=== PATIENT | female | born 1995 | race Caucasian/White ===

== ENCOUNTER → 2021-09-18 00:19 | Outpatient (CLI) | payer OTHER, SELFPAY ==
[2021-09-18 18:14] LABS: SARS-CoV-2 RNA PCR Negative
== END ==
PROVIDERS: Visit Provider Student in an Organized Health Care Education/Training Program
DX: Z01.812 Encounter for preprocedural laboratory examination (principal); Z20.822 Contact with and (suspected) exposure to COVID-19
CPT/HCPCS: C9803; U0003; U0005

== ENCOUNTER 2021-09-22 01:27 | Day surgery (SDC) | payer OTHER, SELFPAY ==
--- NOTE | 2021-09-14 10:45 | SUR.PREOP ---
Report to the Outpatient Waiting Room, entrance under the green pavilion located off [facility], at time __1100__ on date __09/22/21___. OR Time: __1299__. - You and your visitor will be asked a series of questions to screen for COVID 19 for your protection. - A mask is required within the hospital. - Only one visitor is allowed at this time. Patient visitors will be guided where to wait when not with patient. Preoperative COVID Testing Requirements: No COVID Test needed if: (proof is required; if not received patient will have Rapid Test prior to entry) - Patient has received COVID Vaccine at least 14 days prior to procedure date or - Patient has positive COVID test result within last 90 days of surgery date. COVID Test needed if above criteria is not met If not COVID vaccinated a COVID test must be conducted within 72 hours of surgery and patient is asked to isolate self from time of testing until procedure. You will go to the [facility] for your COVID testing. The [facility] Testing site is located at the corner of [address] [facility]. You will only be called if COVID results are positive and your surgeon may reschedule your elective surgery date. Patients may have clear liquids (water, carbonated beverages, clear teas, apple juice) until 3 hours prior to surgery with a maximum of 20 ounces. - No food from midnight until time of surgery - Infants may have breast milk until 4 hours before surgery, formula 6 hours prior to surgery. - Children will be allowed to drink immediately following surgery. If applicable, please bring a bottle or sippy cup to assist with drinking. Juice, water, soda, and popsicles are readily available. For infants on formula, please bring formula the day of surgery. Pacifiers are allowed. Take the following medications with a SIP of water the morning of surgery: dextroamphetamine-amphetamine____ Medications to discontinue per physician n/a Date to take last dose____n/a Please no make-up, nail armenian, hairspray, perfume, deodorant, or body powder the day of surgery. No jewelry (including any body piercings) or valuables the day of surgery, leave them at home. Please take a shower or bath the night before, or the morning of, surgery with an antibacterial soap. Wear comfortable, loose fitting clothing. Children are encouraged to wear pajamas. - Jewelry must be removed prior to entering the operating room. Rings and piercings that are not removed may be cut off. - The hospital will not accept responsibility for valuables. - Please leave all valuables, including medications, at home the day of surgery. If you are going home after surgery, a licensed driver manager must drive you home. - NO public transportation without another adult. - We recommend that an adult stay with you for 24 hours following discharge. - We also recommend that you do not drive, make important decision, drink alcoholic beverages, or take any drugs that were not prescribed by your health care provider for at least 24 hours after your discharge time. For Pediatric surgeries, we recommend two adults accompany the child home (only one inside the building at this time). Follow any additional instructions given to you from your surgeon. Telephone instructions given to ___patient and asked if any additional questions and then verbalized understanding. Patient advised to call surgeon office or pre surgery nurse liaison [phone] if any additional questions.
[2021-09-18 13:32] LABS: Hematocrit 39.4 % (37.0-47.0); Hemoglobin 13.6 g/dL (12.0-15.0); Mean Corpuscular HGB Conc 34.5 g/dl (32-36); Mean Corpuscular Hemoglobin 30.8 pg (26-34); Mean Corpuscular Volume 89.1 fl (80-100); Mean Platelet Volume 10.9 fl (7.4-10.4); Platelet Count Result 184 k/mm3 (150-375); Red Blood Count 4.42 M/mm3 (4.2-5.4); Red Cell Distribution Width 11.9 % (11.5-14.5); White Blood Count 9.7 K/mm3 (4.5-10.0)
--- NOTE | 2021-09-21 15:33 | PM.IMHP ---
H&P: HPI History of Present Illness Date/Time: 09/21/21 15:33 Chief Complaint: ovarian cyst pelvic pain Narrative: 26 yo G0 who presents for laparoscopic right ovarian cystectomy and possible right oophorectomy. Pt has a long history of ovarian cysts. She was previously on continuous OCPs but self-stopped due to not liking how she felt on the pills. Pt initially presented on 06/01/21 for pelvic US to evaluate pelvic pain. Pt noted to have a R sided complex ovarian cyst that takes up most of the ovarian mass. pt had follow up US in 3 months which showed persistence of the cyst. Pt reported continued pain and desires surgical management. Review of Systems Cardiovascular: Cardiovascular: Denies chest pain, Denies leg edema, Denies palpitations, Denies dyspnea and Denies dyspnea on exertion Respiratory: Respiratory: Denies cough, Denies dyspnea and Denies dyspnea on exertion Gastrointestinal: Gastrointestinal: Denies abdominal pain, Denies constipation, Denies diarrhea, Denies nausea and Denies vomiting Genitourinary: Genitourinary: Denies hematuria, Denies urinary frequency, Denies dysuria, Denies pelvic pain, Denies urinary incontinence and Denies vaginal discharge Neurologic: Reports system reviewed and no additional complaints, except as documented Psychiatric: Psychiatric: Reports no additional psychiatric complaints Endocrine: Endocrine: Denies palpitations PMFSH Social History Social History Smoking status: Never smoker Substance use: current Substance use type: marijuana Other substance usage details: daily use Meds Home Medications and Allergies Home Medications Medication Instructions Recorded Confirmed Type dextroamphetamine-amphetamine 20 mg PO BID 09/14/21 09/14/21 History Allergies Allergy/AdvReac Type Severity Reaction Status Date / Time ondansetron [From Zofran] AdvReac Severe Other Verified 09/14/21 10:27 bee venom protein (honey bee) AdvReac Unknown Swelling Verified 09/14/21 10:28 [bees] Exam Const: General: no acute distress Eyes: EOM: EOMs intact bilaterally Neck: Neck: supple Thyroid: thyroid normal Chest: Breast/axilla inspection: normal inspection of the breasts Breast/axilla palpation: normal palpation of the breasts, normal palpation of the axillae and no axillary lymphadenopathy Resp: Effort & Inspection: normal respiratory effort Auscultation: clear to auscultation bilaterally Cardio: Rate: regular rate Rhythm: regular rhythm GI: Inspection: non-distended GI Palp: Yes Soft to palpation, No Tenderness to palpation present (GI) and No Guarding due to palpation present (GI) Auscultation: normal bowel sounds : General: No bladder normal to palpation External Female Exam: normal external appearance Speculum Exam - Vagina: normal vaginal discharge and No vaginal bleeding Speculum Exam - Cervix: nontender Bimanual exam- vagina & uterus: No bladder normal to palpation and No Cervical tenderness present OB/external & speculum: No vaginal bleeding Skin: General skin exam: normal color and no rashes or lesions noted Neuro: Cognition (Neuro): normal cognition Speech: normal speech Extrem: General: normal to inspection and no edema Psych: Mental Status: mental status grossly normal Affect: normal affect Assessment and Plan Assessment and plan (1) Pelvic pain: Code(s): R10.2 - Pelvic and perineal pain Status: Acute Assessment and Plan: pt reports long history of elías-menstrual and chronic pelvic pain (2) Ovarian cyst: Code(s): N83.209 - Unspecified ovarian cyst, unspecified side Status: Acute Assessment and Plan: Pt noted to have complex R ovarian cyst on imaging for pelvic pain pt discontinued medical management cyst composes most of the R ovarian mass follow up US in 3 mo showed persistent cyst suspicious for endometrioma will perform laparoscopic R ovarian cystectomy with possible oophorectomy
[2021-09-22] VITALS (9 sets, daily range): BP systolic 111–127; BP diastolic 69–92; PULSE 52–95; RESP 14–24; TEMP 36.2–36.9; O2SAT 99–100
--- NOTE | 2021-09-22 07:58 | WPDHPUPDATE1 ---
History and Physical Update Update Date/Time: 09/22/21 07:58 History and Physical has been reviewed, including an updated exam of the patient. There are NO changes in the patient's condition. Risks, benefits, and alternatives have been discussed and questions answered. Patient agrees to proceed with procedure.
--- NOTE | 2021-09-22 10:43 | P.PNAN_ITS ---
Anes - Initial Pre Proc Eval Procedure: Operation Date: 09/22/21 12:00 Proposed Procedures p Laparoscopic Right Ovarian Cystectomy with Possible Right Salpingo Oophorectomy - Williams Sawant MD Date/Time: 09/22/21 10:43 Surgeon: Williams Sawant MD Pre Op Diagnosis: right ovarian cyst pain Patient Data Age: 26 Gender: F Height: 1.73 m Weight: Allergies Allergy/AdvReac Type Severity Reaction Status Date / Time ondansetron [From Zofran] AdvReac Severe Other Verified 09/14/21 10:27 bee venom protein (honey bee) AdvReac Unknown Swelling Verified 09/14/21 10:28 [bees] Home Medications Medication Instructions Recorded Confirmed Type dextroamphetamine-amphetamine 20 mg PO BID 09/14/21 09/14/21 History Patient hx anesthesia problems: post op nausea/vomiting Family hx anesthesia problems: none Results Review: All pre-operative results and documents have been reviewed as part of the pre-operative evaluation. [facility] Past Medical History Medical History Anxiety Social History Social History Smoking status: Never smoker Substance use: current Substance use type: marijuana Other substance usage details: daily use Anes - Eval Final PreProcedure Day of Procedure 09/22/21 10:43 Patient weight: overweight Heart: regular rate and rhythm Lungs: clear to auscultation Airway: Mallampati scale class II and special considerations (new dental implants incisors) Neurological: alert and oriented Last oral intake: >/= 8 hours ASA classification: III Emergent: no Anesthetic plan: proceed Anesthesia type and monitoring: general ETT and standard monitoring Results Review: All pre-operative results and documents have been reviewed as part of the pre-operative evaluation. Informed Consent: The patient's anesthetic plan and its attendant risks and samy efits were discussed with the patient/family/POA. Questions were solicited and answers provided to the satisfaction of the patient/family/POA.
[2021-09-22] MEDS: ACETAMINOPHEN 500 MG TABLET 1000 MG PO (10:45)
[2021-09-22] MEDS: SCOPOLAMINE 1.5 MG PATCH TRANSDERM (10:51)
[2021-09-22] MEDS: KETOROLAC 15 MG/ML VIAL (*BKC) IV PUSH (10:58)
[2021-09-22] MEDS: LACTATED RINGERS 1,000 ML 30 ML IV CONT ×2 (10:59→13:35)
[2021-09-22] MEDS: LIDO 1%/EPINEPHRINE 1:100,000 50 ML VIAL 15 ML INFILTRATE (12:17)
--- NOTE | 2021-09-22 12:58 | W.PM.PROC2 ---
Procedure Note - Detailed Date of Procedure 09/22/21 Pre-op Diagnosis right ovarian cyst pain Post-op Diagnosis same Procedure Performed Laparoscopic right ovarian cystectomy Surgeon Williams Sawant MD Anesthesia general Indications chronic pelvic pain, right ovarian complex cyst Description of Procedure The patient was taken to the operating room where general endotracheal anesthesia was undertaken and found to be adequate. She was then prepped and draped in the dorsal lithotomy position and placed in adjustable stirrups. A pre-operative team brief and a time out were completed. A catheter was placed to drain the bladder. Retractors were placed placed in the vagina and the cervix was identified. An acorn uterine manipulator was placed. Attention was then turned to the abdomen which was anesthetized umbilically with injected anesthestic. A 5mm mm skin incision was made in the umbilicus. A 5 mm optical trocar was then placed with direct camera visualization of the abdominal layers during placement. The trocar stylet was removed and the camera was used to verify intra-abdominal placement. CO2 insufflation was then connected and resumed. The pelvis was inspected. A left lower quadrant 5 mm port was placed, in addition to a right lower quadrant 5 port in the standard fashion after using local anesthetic. The pelvis was then surveyed and noted an enlarged R ovary. The ovarian capsule was incised with monopolar scissors. The ovarian capsule was then dissected free from the underlying cyst capsule. The cyst was punctured with an aspiration need which returned clear fluid. The deflated ovarian capsule was then grasped with an atraumatic bowel grasper. The ovarian capsule was then grasped with a [place] grasper. The cyst was then able to be removed from the ovary intact with opposite traction. The ovarian cyst was noted to have been lacerated during attempted extraction. The cyst was noted to be filled with hair and adipose tissue suggestive of a teratoma. The umbilicus incision was then converted to a 10mm incision. An endopouch was then introduced and the cyst was placed in the bag. The cyst was removed in the pouch through the umbilicus port site. The ovarian bed was then irrigated. The ovary was found to be hemostatic. The surgical field was thoroughly irrigated using normal saline. All surgical beds were noted to be hemostatic. A Manny-Gretchen was then used to closed the umbilical fascial incision under direct visualization. The abdomen was relieved of all CO2 gas. All remaining trocars were removed from the abdomen. Sponge, lap and needle counts were correct. All skin incisions were closed with 4-0 Vicryl suture subcuticularly. The uterine manipulator was removed from the uterus. Hemostasis of the cervix was obtained with silver nitrate. The urinary catheter was removed. The patient was taken out of dorsal lithotomy position. Anesthesia was reversed. The patient was taken to the PACU. Estimated Blood Loss 50 Urine Output 50 Drains No Packing No Pathology yes (Right ovarian cyst and fluid) Complications No immediate complications Condition stable Disposition PACU
[2021-09-22] MEDS: fentaNYL CITRATE INJ (*CRX) 100 MCG/2 ML VIAL 25 MCG IV PUSH ×4 (13:19→13:54)
[2021-09-22] MEDS: oxyCODONE HCL (*CRX) 5 MG TAB IR PO (14:28)
== END 2021-09-22 15:01 | disposition home or self-care (01) ==
PROVIDERS: Visit Provider Student in an Organized Health Care Education/Training Program
PROC: (CPT 49320; principal; 2021-09-22 12:00)
DX: D27.0 Benign neoplasm of right ovary (principal); R10.2 Pelvic and perineal pain; F12.90 Cannabis use, unspecified, uncomplicated
CPT/HCPCS: 58662; 85027; 86850; 86900; 86901; 88305; A9270; C9803; J1100; J1885; J2250; J2405; J2704; J2710; J3010; J7030; J7120; U0003; U0005

== ENCOUNTER 2022-04-14 09:16 | Outpatient (RCR) | payer OTHER, SELFPAY ==
[2022-04-14] MEDS: RHO(D) IMMUNE GLOBULIN 300 MCG/2 ML SYRINGE IM (14:23)
== END 2022-04-14 10:00 | disposition home or self-care (01) ==
LOC: ANHLAB 09:16
PROVIDERS: Visit Provider Obstetrics & Gynecology
DX: Z29.13 Encounter for prophylactic Rho(D) immune globulin (principal)
CPT/HCPCS: 36415; 85461; 90384; 96372; J2790

== ENCOUNTER 2022-06-27 14:53 | Outpatient (RCR) | payer OTHER, SELFPAY ==
--- NOTE | ~2022-06-27 | US_ITS ---
EXAMINATION: US OB limited DATE: 06/27/2022 17:15 INDICATION: TEHAN TECHNIQUE: Real-time ultrasound of the pelvis was performed. COMPARISON: None. FINDINGS: There is a single living fetus in vertex presentation, longitudinal lie. The placenta is posterior. heart rate is 165 beats per minute (bpm). The amniotic fluid index is [23.1 cm, which is elevat ed (5th to 95th percentile range is 7.2 to 22.6 cm).] IMPRESSION: 1. Single living fetus in [vertex presentation.] 2. Posterior placenta. 3. Elevated ETHAN of 23.1 cm (22.6 cm represents the 95th percentile). Reviewed, dictated and finalized at location K.
[2022-06-27 16:20] VITALS: BP 128/77; PULSE 80
--- NOTE | 2022-06-27 18:31 | PC.NURSE ---
Dr Orona notified of vaiable decels and ETHAN. OK to dc home with labor precautions.
== END 2022-07-27 10:13 | disposition home or self-care (01) ==
LOC: ANHOBOP 14:53
PROVIDERS: Visit Provider Obstetrics & Gynecology
DX: O48.0 Post-term pregnancy (principal); O43.93 Unspecified placental disorder, third trimester; Z3A.40 40 weeks gestation of pregnancy
CPT/HCPCS: 59025; 76815

== ENCOUNTER 2022-06-30 10:44 | Inpatient (IN) | payer OTHER, SELFPAY ==
[2022-06-30] VITALS (158 sets, daily range): BP systolic 93–158; BP diastolic 56–108; PULSE 25–133; RESP 16–17; TEMP 36.4–36.8; O2SAT 84–100; BMI 31.5
[2022-06-30] MEDS: LACTATED RINGERS 1,000 ML 125 ML IV CONT ×2 (12:23→21:09)
[2022-06-30] MEDS: AMPICILLIN 2 GM/NS 100 ML 2 GM/100 ML BAG IVPB (12:24)
[2022-06-30 12:52] LABS: Basophils Absolute Auto 0.1 K/mm3 (0.0-0.1); Basophils Percent Auto 0.4 % (0.2-1.2); Eosinophils Percent Auto 0.2 % (0-4.4); Hematocrit 37.3 % (37.0-47.0); Hemoglobin 12.9 g/dL (12.0-15.0); Immature Granulocyte Absolute 0.09 K/mm3 (0.00-0.031); Immature Granulocyte Percent A 0.7 % (0-0.5); Lymphocytes Absolute Auto 1.46 K/mm3 (0.9-3.2); Lymphocytes Percent Auto 11.7 % (18.3-44.2); Mean Corpuscular HGB Conc 34.6 g/dl (32-36); Mean Corpuscular Volume 86.7 fl (80-100); Mean Platelet Volume 12.6 fl (7.4-10.4); Monocytes Absolute Auto 0.9 K/mm3 (0.1-0.6); Monocytes Percent Auto 6.8 % (2.6-8.5); Neutrophils Percent Auto 80.2 % (45.5-73.1); Platelet Count Result 141 k/mm3 (150-375); Red Cell Distribution Width 12.5 % (11.5-14.5); White Blood Count 12.4 K/mm3 (4.5-10.0)
--- NOTE | 2022-06-30 13:34 | P.PNAN_ITS ---
Anes - Eval Final PreProcedure Day of Procedure 06/30/22 13:34 Results Review: All pre-operative results and documents have been reviewed as part of the pre- operative evaluation. Informed Consent: The patient's anesthetic plan and its attendant risks and benefits were discussed with the patient/family/POA. Questions were solicited and answers provided to the satisfaction of the patient/family/POA.
--- NOTE | 2022-06-30 13:35 | WPDANESEPPF ---
Anes - Initial Pre Proc Eval Procedure: Labor Epidural Date/Time: 06/30/22 13:35 Surgeon: Cruz Orona MD Pre Op Diagnosis: Labor pain Pre Op Diagnosis: Labor Patient Data Age: 27 Gender: F Height: Weight: Last Vital Signs Pulse 85 06/30/22 13:30 BP 140/90 06/30/22 13:30 Pulse Ox 100 06/30/22 13:34 Allergies Allergy/AdvReac Type Severity Reaction Status Date / Time ondansetron [From Zofran] AdvReac Severe Other Verified 09/22/21 11:17 bee venom protein (honey bee) AdvReac Unknown Swelling Verified 09/22/21 11:17 [bees] Home Medications Medication Instructions Recorded Confirmed Type dextroamphetamine-amphetamine 10 mg PO DAILY 06/09/22 06/27/22 History Laboratory Tests 06/30/22 06/30/22 12:05 12:05 WBC 12.4 K/mm3 H K/mm3 (4.5-10.0) RBC 4.30 M/mm3 M/mm3 (4.2-5.4) Hgb 12.9 g/dL g/dL (12.0-15.0) Hct 37.3 % % (37.0-47.0) MCV 86.7 fl fl (80-100) MCH 30.0 pg pg (26-34) MCHC 34.6 g/dl g/dl (32-36) RDW 12.5 % % (11.5-14.5) Plt Count 141 k/mm3 L k/mm3 (150-375) MPV 12.6 fl H fl (7.4-10.4) Immature Gran % (Auto) 0.7 % H % (0-0.5) Neut % (Auto) 80.2 % H % (45.5-73.1) Lymph % (Auto) 11.7 % L % (18.3-44.2) Platte % (Auto) 6.8 % % (2.6-8.5) Eos % (Auto) 0.2 % % (0-4.4) Baso % (Auto) 0.4 % % (0.2-1.2) Lymph # (Auto) 1.46 K/mm3 K/mm3 (0.9-3.2) Platte # (Auto) 0.9 K/mm3 H K/mm3 (0.1-0.6) Eos # (Auto) 0.0 K/mm3 K/mm3 (0-0.3) Baso # (Auto) 0.1 K/mm3 K/mm3 (0.0-0.1) Abs Immat Gran (auto) 0.09 K/mm3 H K/mm3 (0.00-0.031) Absolute Neuts (auto) 10.0 K/mm3 H K/mm3 (1.3-6.7) Absolute Nucleated RBC 0.0 K/mm3 K/mm3 (0.0-0.012) Nucleated RBC % 0.0 % % (0.0-0.2) RPR Pending Patient hx anesthesia problems: none Family hx anesthesia problems: none Results Review: All pre-operative results and documents have been reviewed as part of the pre-operative evaluation. [facility] Past Medical History Medical History Anxiety Social History Social History Smoking status: Never smoker Substance use: never Substance use type: marijuana Other substance usage details: daily use Spiritual care concerns: No Anes - Eval Final PreProcedure Day of Procedure 06/30/22 13:35 Results Review: All pre-operative results and documents have been reviewed as part of the pre-operative evaluation. Informed Consent: The patient's anesthetic plan and its attendant risks and benefits were discussed with the patient/family/POA. Questions were solicited and answers provided to the satisfaction of the patient/family/POA.
--- NOTE | 2022-06-30 14:07 | LDADM ---
This patient, Janice Gan, was admitted to Labor/Delivery/Recovery 105 on 06/30/22 at 10:44. Plans for labor, pain management and were discussed with patient. Patient/family oriented to hospital policies and general routines including ID bracelet, bed and alarms, visiting hours, pain management, procedures, bathroom and other care routines, personal items, smoking policy, room service/diet and guest tray routines, security routines, and visiting hours. Patient/Family are encouraged to report perceived risks to care and to ask questions if they do not understand what they are told or what they should do. See OBIX for further documentation.
[2022-06-30] MEDS: AMPICILLIN 1 GM/NS 50 ML 1 GM/50 ML BAG IVPB ×2 (16:26→20:30)
--- NOTE | 2022-06-30 16:40 | PM.IMHP ---
H&P: HPI History of Present Illness Date/Time: 06/30/22 16:40 Chief Complaint: Contractions. Narrative: 27 y/o G1 at 40 2/7 weeks gestation with contractions worsening at 0700 today. GBS pos. Labor has been diagnosed. She is now comfortable with epidural. Review of Systems Review of Systems: All systems reviewed & are unremarkable except as noted in HPI and below PMFSH Past Medical History Medical History (Updated 06/30/22 @ 16:46 by Cruz Orona MD) ADHD (attention deficit hyperactivity disorder) Anxiety Surgical History Surgical History History of cholecystectomy History of ovarian cystectomy Social History Social History Smoking status: Never smoker Substance use: never Substance use type: marijuana Other substance usage details: daily use Spiritual care concerns: No Meds Home Medications and Allergies Home Medications Medication Instructions Recorded Confirmed Type dextroamphetamine-amphetamine 10 mg PO DAILY 06/09/22 06/27/22 History Allergies Allergy/AdvReac Type Severity Reaction Status Date / Time ondansetron [From Zofran] AdvReac Severe Other Verified 09/22/21 11:17 bee venom protein (honey bee) AdvReac Unknown Swelling Verified 09/22/21 11:17 [bees] Vital Signs Vital Signs - 24 hr 06/30/22 12:31 06/30/22 12:46 06/30/22 13:01 Pulse Rate 101 H 69 73 Blood Pressure 151/87 H 158/82 H 143/95 H Pulse Oximetry Oxygen Delivery 06/30/22 13:04 06/30/22 13:05 06/30/22 13:09 Pulse Rate 87 Blood Pressure 144/108 H Pulse Oximetry 100 100 Oxygen Delivery 06/30/22 13:14 06/30/22 13:19 06/30/22 13:24 Pulse Rate 72 Blood Pressure 139/80 Pulse Oximetry 100 100 100 Oxygen Delivery 06/30/22 13:28 06/30/22 13:29 06/30/22 13:30 Pulse Rate 70 85 85 Blood Pressure 135/83 145/84 H 140/90 Pulse Oximetry 100 Oxygen Delivery 06/30/22 13:34 06/30/22 13:37 06/30/22 13:39 Pulse Rate 91 77 66 Blood Pressure 142/95 H 137/91 H 132/83 Pulse Oximetry 100 100 Oxygen Delivery 06/30/22 13:40 06/30/22 13:43 06/30/22 13:44 Pulse Rate 67 67 75 Blood Pressure 127/90 126/80 136/76 Pulse Oximetry 100 Oxygen Delivery 06/30/22 13:47 06/30/22 13:48 06/30/22 13:49 Pulse Rate 66 62 Blood Pressure 108/71 109/72 Pulse Oximetry 100 Oxygen Delivery 06/30/22 13:50 06/30/22 13:53 06/30/22 13:54 Pulse Rate 63 70 63 Blood Pressure 122/81 116/76 105/68 Pulse Oximetry 100 Oxygen Delivery 06/30/22 13:56 06/30/22 13:59 06/30/22 14:04 Pulse Rate 66 81 Blood Pressure 105/66 96/81 L Pulse Oximetry 99 99 Oxygen Delivery 06/30/22 14:09 06/30/22 14:14 06/30/22 14:15 Pulse Rate 65 Blood Pressure 110/66 Pulse Oximetry 100 95 Oxygen Delivery 06/30/22 14:19 06/30/22 14:24 06/30/22 14:29 Pulse Rate Blood Pressure Pulse Oximetry 97 99 97 Oxygen Delivery 06/30/22 14:31 06/30/22 14:34 06/30/22 14:36 Pulse Rate 63 Blood Pressure 105/67 Pulse Oximetry 100 98 Oxygen Delivery 06/30/22 14:38 06/30/22 14:39 06/30/22 14:39 Pulse Rate Blood Pressure Pulse Oximetry 100 84 L 88 L Oxygen Delivery 06/30/22 14:40 06/30/22 14:41 06/30/22 15:00 Pulse Rate 65 Blood Pressure 125/88 Pulse Oximetry 96 100 Oxygen Delivery 06/30/22 15:16 06/30/22 15:46 06/30/22 16:00 Pulse Rate 65 77 88 Blood Pressure 129/88 119/76 127/82 Pulse Oximetry Oxygen Delivery 06/30/22 16:16 06/30/22 16:31 06/30/22 14:06 Pulse Rate 68 98 Blood Pressure 124/80 119/82 Pulse Oximetry Oxygen Delivery Room Air Exam Const: Orientation/consciousness: patient oriented x3 Other: Well-developed, well-nourished female in no acute distress. Neck: Thyroid: thyroid normal Lymphatic: no lymphadenopathy noted (in neck, axilla or inguinal nodes) Resp
[2022-06-30] MEDS: SODIUM CHLORIDE 0.9% IV 300 ML 600 ML I-UTERINE (22:09)
[2022-06-30] MEDS: SODIUM CHLORIDE 0.9% IV 1,000 ML 150 ML I-UTERINE (22:43)
[2022-07-01] VITALS (21 sets, daily range): BP systolic 103–138; BP diastolic 61–97; PULSE 55–155; RESP 16–18; TEMP 36.3–36.6; O2SAT 97–100
[2022-07-01] MEDS: OXYTOCIN 30 UNITS/NS 500 ML 30 UNITS/500 ML BAG 999 UNITS IV CONT (01:09)
--- NOTE | 2022-07-01 01:26 | PM.OBPRVD ---
OB - Delivery Note Procedure Delivery date: 07/01/22 Procedure: Delivery augmentation: Rupture of Membranes Delivery monitor: External FHT, External Uterine and Internal Uterine Route of delivery: Laceration Description: Vaginal Delivery repair: vicryl (3-0) Specimen: Yes (cord blood) Quantitative Blood Loss (ml): 180 Anesthesia type: Epidural Disposition: PACU Complications: None Narrative: 27 y/o G1 at 40 3/7 weeks gestation who presented to the hospital with complaint of contractions. Labor was diagnosed. Ampicillin was administered IV for GBS colonization. She received an epidural for pain control. Amniotomy was performed with return of clear fluid. Her labor progressed and her cervix dilated completely. She pushed with good effort and delivered the infant's head to the perineum, followed by the body. The nose and mouth were bulb suctioned. After a delay, the cord was clamped and cut. The was handed off the field. Cord blood was collected. The placenta delivered spontaneously and was grossly normal in appearance. The usual 3 vessel cord was noted. A distal vaginal laceration was sustained. This was reapproximated using 3 0 Vicryl in interrupted figure of eight fashion. Excellent hemostasis resulted as did excellent reapproximation of the normal anatomy. Needle and instrument counts were correct. The patient was taken to recovery room in stable condition. The went to the nursery in stable condition. I was present and scrubbed for the entire delivery. [place] [facility] Date of : 07/01/22 Time of : 01:05 Weeks of gestation at delivery: 40 gender: Male Weight (pounds): 7 Weight (ounces): 3 presentation: vertex position: Right Occiput Anterior Placenta delivery description: Spontaneous and Normal Configuration Cord Vessel Description: 3 Vessels and Delayed Cord Clamping score one minute: 9 score five minutes: 9
--- NOTE | 2022-07-01 01:30 | PM.OBDSVD ---
DS: Admitting Diagnosis Discharge Date 07/02/22 Admitting Diagnosis IUP at 40 3/7 weeks GBS colonization Labor DS: Discharge Diagnosis Discharge Diagnosis (1) (normal spontaneous vaginal delivery): Code(s): O80 - Encounter for full-term uncomplicated delivery Status: Acute (2) GBS (group B Streptococcus carrier), +RV culture, currently : Code(s): O99.820 - Streptococcus B carrier state complicating Status: Acute OB - DS: Summary OB Procedures : None OB Procedures Intrapartum: Spontaneous Vag Delivery OB Procedures: : None Time Spent with Patient Time attestation: Total time spent providing and/or coordinating discharge services: DS: Data Data Completed and Pending Labs on day of discharge: Labs from last 24 hours 06/30/22 06/30/22 06/30/22 12:05 12:05 12:05 WBC 12.4 H RBC 4.30 Hgb 12.9 Hct 37.3 MCV 86.7 MCH 30.0 MCHC 34.6 RDW 12.5 Plt Count 141 L MPV 12.6 H Immature Gran % (Auto) 0.7 H Neut % (Auto) 80.2 H Lymph % (Auto) 11.7 L Ector % (Auto) 6.8 Eos % (Auto) 0.2 Baso % (Auto) 0.4 Lymph # (Auto) 1.46 Ector # (Auto) 0.9 H Eos # (Auto) 0.0 Baso # (Auto) 0.1 Abs Immat Gran (auto) 0.09 H Absolute Neuts (auto) 10.0 H Absolute Nucleated RBC 0.0 Nucleated RBC % 0.0 RPR Pending Blood Type O Negative Antibody Screen Positive Antibody Identification Passive Due to RH Imm Glob Antigen Identification TNP ALEXIA, IgG Interpret Not Performed ALEXIA, Poly Interpret Negative ALEXIA, Complement Interp Not Performed Discharge Plan Discharge Attending physician on discharge: Cruz Orona Discharging Clinician: Cruz Orona Patient Disposition: Home, Self-Care Activity: pelvic rest Diet: regular Discharge Instructions: Education: Mom and Baby Guide Given to: Mother Follow-Up: Call your delivering provider's office for an appointment to be seen in: 6 Weeks Mom [facility] follow-up appointment. Appointment Date/Time: July 04, 2022 at 9:00 am What to expect at your follow-up visit: Blood Pressure Check Call [phone] if you are unable to keep your appointment time. BREAST CARE: * Wear a snug supportive bra. * For engorgement discomfort: Breast Feeding: * Apply warm moist washcloths * Express milk as needed to relieve engorgement * Wear loose clothing Bottle Feeding: * May apply ice packs * For sore nipples: * Identify correct latch-on * Apply warm moist washcloths before and after nursing * Air dry nipples after nursing * May apply Lansinoh cream to nipples PERINEAL CARE: * Until bleeding stops, use your elías bottle after urinating * Change your pad frequently throughout the day * You may take sitz baths several times a day (fill your bathtub with warm water and soak for 20 minutes.) Do NOT bathe in the water * No tub baths until seen by your physician - You may shower ACTIVITY: * Rest as much as possible. * Do not exercise or lift anything heavier than your baby (such as laundry or other children.) * Avoid stairs or driving as much as possible. * Do not put anything into the vagina. No douching, tampons, or sexual activity until seen by physician. NOTIFY PHYSICIAN IF YOU HAVE ANY QUESTIONS OR IF ANY OF THE FOLLOWING SYMPTOMS OCCUR: * If your perineum becomes red, swollen, or more painful than what you have experienced in the hospital. * If your vaginal bleeding becomes foul smelling. * If your vaginal bleeding becomes more heavy than a period or if your bleeding changes from pink to bright red. However, you may pass an occasional walnut-sized clot once or twice for the first week . * If you experience a sharp, shooting pain in you calves. * If you discover
[2022-07-01] MEDS: OXYTOCIN 30 UNITS/NS 500 ML 30 UNITS/500 ML BAG 125 UNITS IV CONT (01:56)
[2022-07-01] MEDS: BENZOCAINE 20% AER SPR (*SP) 56 GM CAN 1 SPRAY TOPICAL (03:36)
[2022-07-01] MEDS: WITCH HAZEL 40 PADS 1 PAD TOPICAL (03:36)
--- NOTE | 2022-07-01 03:40 | OBPPTRN ---
Patient transferred to post room #292 via (wheelchair). Oriented to unit, room, information board, rooming in, admission packet and security measures. Patient verbalizes understanding.
[2022-07-01 07:23] LABS: Rapid Plasma Reagin Non-Reactive (NonReactive)
[2022-07-01] MEDS: IBUPROFEN 600 MG TABLET PO ×2 (07:43→17:34)
[2022-07-01] MEDS: MULTIVIT/MIN/PREN/FOL AC/IRON TABLET 1 TAB PO (07:44)
[2022-07-01] MEDS: DOCUSATE SODIUM 100 MG CAPSULE PO ×2 (07:44→17:34)
--- NOTE | 2022-07-01 09:11 | PC.NURSE ---
[phone] Introductions were made, then consulted with patient to assess needs related to . Mother led the conversation with her?plans to feed?her infant and the?experience so far. Resources provided for inpatient and outpatient services using a resource guide and mom/baby guide. Mother voiced understanding of information and requested assistance. Blood sugar on infant resulted in 65mg/dl. Infant is making no efforts to breastfeed. Reported to RN that infant had a large old blood spit up in the nursery this morning. Discussed with mother stimulating for milk production with hand expression, manual pumping or electric pumping. Breast pump provided due to inverted nipples and ineffective . Instructions given on cleaning, care, usage, that there should be no pain, pumping schedule for milk production, collection, and storage of human milk. Parents are encouraged to record pumping schedule on the feeding sheet. Patient was assessed for correct placement, flange size, to pump for comfort and nipple stretching/stimulation for adequate milk production every 3 hours (8 times in 24 hours) 1-2 times at night. had another large old blood spit up. Mother voiced understanding of the education shared along with mom and baby guide for additional resource information. Mother pumped 24 mls. Finger fed 5 large drops of colostrum to her . Mother decided to store the breast milk (14 mls at room temperature and 10 in the refrigerator) related to her tiredness and the not showing any feeding cues or efforts at this time. Reported to the primary RN.
[2022-07-01] MEDS: ACETAMINOPHEN 325 MG TABLET 650 MG PO ×2 (13:22→20:00)
[2022-07-02] MEDS: IBUPROFEN 600 MG TABLET PO ×3 (00:44→15:21)
[2022-07-02 00:45] VITALS: BP 121/73; PULSE 77; RESP 16; TEMP 36.3; O2SAT 99
[2022-07-02] MEDS: ACETAMINOPHEN 325 MG TABLET 650 MG PO ×2 (04:53→15:22)
[2022-07-02 05:46] LABS: Hematocrit 32.9 % (37.0-47.0); Hemoglobin 11.1 g/dL (12.0-15.0)
--- NOTE | 2022-07-02 09:30 | PC.NURSE ---
PT introductions made and plan of care discussed per post , pain management, breast feeding, pumping and bottle feeding, pending discharge to home and daily care activities. PT sole recipient of such instructions and no barriers to learning identified at this time. PT received instructions this shift per one to one discussion, mom baby care guide and demonstrations. PT verbalized understanding of such care.
[2022-07-02] MEDS: MULTIVIT/MIN/PREN/FOL AC/IRON TABLET 1 TAB PO (09:59)
[2022-07-02 10:00] VITALS: BP 126/79; PULSE 83; RESP 18; TEMP 36.8; O2SAT 97
[2022-07-02] MEDS: DOCUSATE SODIUM 100 MG CAPSULE PO (10:00)
--- NOTE | 2022-07-02 11:23 | PM.OBPNVD ---
OB - PN: Subj Subjective Date/time seen: 07/02/22 11:23 Narrative: Pain OK. Would like to go home. OB - PN: Obj Data Labs CBC & Chem 7: 07/02/22 04:59 Labs: Laboratory Results - last 24 hr 07/02/22 07/02/22 04:59 04:59 Hgb 11.1 L Hct 32.9 L Blood Type O Negative Antibody Screen Negative Screen Negative Baby's Blood Type O pos Baby's ALEXIA Positive Doses of RhIg Required 1 OB - PN A/P Plan Comments: A: PPD#1, doing well. P: Home to f/u 6 weeks. Exam Psych: Other: AVSS ABD soft, nontender, fundus firm EXT nontender
--- NOTE | 2022-07-02 11:37 | WPDANLDPN2 ---
Anes-Prog Note L&D Date/Time: 07/02/22 11:37 Neuro status: Neuro function grossly intact. Vital Signs: Last Vital Signs Temp 36.3 C L 07/02/22 00:45 Pulse 77 07/02/22 00:45 Resp 16 07/02/22 00:45 BP 121/73 07/02/22 00:45 Pulse Ox 99 07/02/22 00:45 O2 Del Method Room Air 07/01/22 17:30 Pain score (VAS): 0 I/O: Intake & Output 07/01/22 07/02/22 07/02/22 23:59 07:59 15:59 Intake Total 240 Balance 240 Patient feedback: Patient satisfied with anesthetic care.
[2022-07-02] MEDS: RHO(D) IMMUNE GLOBULIN 300 MCG/2 ML SYRINGE IM (15:05)
--- NOTE | 2022-07-02 17:00 | PC.NURSE ---
PT received discharge instructions per protocol and verbalized understanding of such care. Follow up appts confirmed
--- NOTE | 2022-07-02 17:25 | PC.NURSE ---
PT discharged to home ambulatory accompanied by spouse and and taken to waiting car. Follow up appts confirmed
[2022-07-04 09:40] VITALS: BP 121/78; PULSE 86; RESP 20; TEMP 36.7; O2SAT 100
== END 2022-07-02 17:25 | disposition home or self-care (01) | DRG 807 ==
LOC: ANHLDR 07-01 01:32 → ANHOB2 07-01 03:44
PROVIDERS: Admitting Provider Obstetrics & Gynecology; Visit Provider Obstetrics & Gynecology
DX: O99.824 Streptococcus B carrier state complicating childbirth (principal); Z37.0 Single live birth; O76 Abnormality in fetal heart rate and rhythm complicating labor and delivery; O70.0 First degree perineal laceration during delivery; Z3A.40 40 weeks gestation of pregnancy; Z90.49 Acquired absence of other specified parts of digestive tract
CPT/HCPCS: 36415; 59025; 76815; 85014; 85018; 85025; 85461; 86592; 86850; 86880; 86900; 86901; 90384; A9270; J0290; J2590; J2790; J2795; J7030; J7120